=== PATIENT | male | born 1945 | race Two or more races ===

== ENCOUNTER → 2019-02-10 | Day surgery (SDC) | payer OTHER ==
[~2019-02-10] MED LIST: CIPRO500 MG; CIPRO500 MG PO; FLAGYL500MG; FLAGYL500MG PO; INTESTINEX1 CA1; OMEPRAZOLE40 MG; PROTONIX40 MG; ZANTAC300 MG
== END | disposition home or self-care (01) ==
LOC: ADM 02-07 10:15 → AMB-ENDOS 09:30
DX: K57.30 Diverticulosis of large intestine without perforation or abscess without bleeding (principal); K92.1 Melena; K64.1 Second degree hemorrhoids

== ENCOUNTER 2019-04-14 06:23 | Emergency (ER) | payer OTHER ==
[~2019-04-14] VITALS: Ht 188 cm; Wt 73.5 kg
== END 2019-04-14 14:38 | disposition home or self-care (01) ==
LOC: ER 06:23
DX: K57.90 Diverticulosis of intestine, part unspecified, without perforation or abscess without bleeding (principal); R10.32 Left lower quadrant pain

== ENCOUNTER 2019-08-12 09:42 | Emergency (ER) | payer OTHER ==
[~2019-08-12] VITALS: Ht 188 cm; Wt 74.4 kg
[2019-08-12] MEDS ORDERED: PROBIOTIC1 EAC4 (10:05)
[2019-08-12] MEDS ORDERED: PROTONIX40 MG (10:05)
== END 2019-08-12 16:56 | disposition home or self-care (01) ==
LOC: ER 09:42
DX: K59.09 Other constipation (principal)